=== PATIENT | male | born 1980 | race Caucasian/White ===

== ENCOUNTER 2016-11-28 17:06 | Emergency (ER) | payer SELFPAY ==
[~2016-11-28] VITALS: Ht 175.3 cm; Wt 74.8 kg
--- NOTE | 2016-11-28 18:05 | NUR ---
Pt brought to bed 5a via , dr gomez at bedside for exam.
[2016-11-28] MEDS ORDERED: MORPHINE SULFATE 2 MG/1 ML DISP.SYRIN ONE (18:09)
[2016-11-28] MEDS ORDERED: MORPHINE SULFATE 4 MG/1 ML DISP.SYRIN ONE (18:10)
[2016-11-28] MEDS ORDERED: MORPHINE SULFATE 4 MG/1 ML DISP.SYRIN IM ONE (18:15)
--- NOTE | 2016-11-28 19:00 | NUR ---
Received report from MEKA Walker.Pt will be discharged after the cast.
--- NOTE | 2016-11-28 19:15 | NUR ---
Elaina at the bedside completing the cast at left leg.
--- NOTE | 2016-11-28 19:45 | NUR ---
Patient discharged to home in stable conditon. Written and verbal after care instructions given. Patient verbalizes understanding of instructions.
[2016-11-28 19:46] VITALS: BP 132/76
== END 2016-11-28 19:45 | disposition home or self-care (01) ==
LOC: ER 17:06
DX: S92.355A Nondisplaced fracture of fifth metatarsal bone, left foot, initial encounter for closed fracture (principal); W23.0XXA Caught, crushed, jammed, or pinched between moving objects, initial encounter; Y93.89 Activity, other specified; Y99.8 Other external cause status; Y92.89 Other specified places as the place of occurrence of the external cause
CPT/HCPCS: 29515; 73630; 96372; 99284; A4663; J2270 ×2